=== PATIENT | female | born 1985 | race Caucasian/White ===

== ENCOUNTER → 2019-01-17 | Outpatient (CLI) | payer BC ==
--- NOTE | 2019-01-17 14:51 | Diagnostic Imaging Report ---
Exam: Abdominal film Clinical History: Renal stone, right flank pain Comparison: None. DISCUSSION: The bowel gas pattern shows no dilated, air-filled loops of bowel. No calcifications project over the renal shadows or expected ureteral courses. Pelvic phleboliths. Right upper quadrant surgical clips likely reflect prior cholecystectomy. No mass effect or organomegaly. Regional skeletal structures are intact. IMPRESSION: No plain film evidence of urolithiasis. Signed by: Dr. Josh Felder M.D. on 01/17/2019 2:47 PM
== END ==
LOC: RAD 14:10
PROVIDERS: ATTEND Urology
DX: N20.1 Calculus of ureter (principal)
CPT/HCPCS: 74018